=== PATIENT | female | born 1945 ===

== ENCOUNTER 2018-11-17 08:46 | Day surgery (SDC) | payer MEDICARE ==
[2018-11-17 10:39] VITALS: BMI 32.5
[2018-11-17] MEDS ORDERED: Lactated Ringer's 500 ML IV ONE (10:47)
[2018-11-17] MEDS ORDERED: Propofol 10 mg/ml Inj (20 ML) ONE (11:44)
[2018-11-17 12:16] VITALS: PULSE 79; RESP 15; TEMP 97; O2SAT 98
[2018-11-17 12:34] VITALS: BP 118/65
== END 2018-11-17 13:29 | disposition home or self-care (01) ==
LOC: H.ENDO 08:46
PROVIDERS: ATTEND Internal Medicine Gastroenterology
DX: Z12.11 Encounter for screening for malignant neoplasm of colon (principal); M41.9 Scoliosis, unspecified; I12.9 Hypertensive chronic kidney disease with stage 1 through stage 4 chronic kidney disease, or unspecified chronic kidney disease; N18.3 Chronic kidney disease, stage 3 (moderate); K29.50 Unspecified chronic gastritis without bleeding; K44.9 Diaphragmatic hernia without obstruction or gangrene; K31.89 Other diseases of stomach and duodenum; R10.13 Epigastric pain
CPT/HCPCS: 43239; 45378; 88305; J2001; J2704; J7120